=== PATIENT | male | born 1940 | race Hispanic/Latino ===

== ENCOUNTER 2017-07-07 08:33 | Day surgery (SDC) | payer MEDICARE ==
[2017-07-07] MEDS ORDERED: NACL 0.9% 500 ML 500 ML IV SCH (09:00)
[2017-07-07 09:17] LABS: Basophils # (Auto) 0.1 K/mm3 (0.0-0.1); Basophils % (Auto) 0.9 % (0.0-1.8); Eosinophils # (Auto) 0.3 K/mm3 (0.0-0.4); Eosinophils % (Auto) 2.8 % (0.0-4.3); Hematocrit 39.6 % (35.5-45.6); Hemoglobin 12.4 gm/dl (11.8-15.2); Lymphocytes # (Auto) 1.3 K/mm3 (1.2-5.4); Lymphocytes % (Auto) 11.4 % (13.4-35.0); Mean Corpuscular HGB Conc 31 % (32-34); Mean Corpuscular Hemoglobin 28 pg (28-32); Mean Corpuscular Volume 91 fl (84-94); Monocytes # (Auto) 1.4 K/mm3 (0.0-0.8); Monocytes % (Auto) 11.8 % (0.0-7.3); Platelet Count 231 K/mm3 (140-440); Red Blood Count 4.38 M/mm3 (3.65-5.03); Red Cell Distribution Width 16.6 % (13.2-15.2)
[2017-07-07 09:27] LABS: INR 1.32 (0.87-1.13)
[2017-07-07 09:28] LABS: Partial Thromboplastin Time 34.4 Sec. (24.2-36.6)
[2017-07-07] MEDS ORDERED: NACL 0.45% 1000 ML 0 ML IV ONE (09:34)
[2017-07-07] MEDS ORDERED: NACL 0.9% 1000 ML 1,000 ML IV SCH (09:35)
[2017-07-07] MEDS ORDERED: NACL 0.9% 1000 ML 1,000 ML ONE (09:35)
[2017-07-07] MEDS ORDERED: HEPARIN/NS 5000 UNIT/500ML(CATH LAB) 1,000 ML IR ONE (09:36)
[2017-07-07] MEDS ORDERED: XYLOCAINE 2% INFILTRATI ONE (09:36)
[2017-07-07 10:02] LABS: Calcium 9.4 mg/dL (8.4-10.2)
[2017-07-07] MEDS ORDERED: BENADRYL ONE (10:09)
[2017-07-07] MEDS ORDERED: VERSED ONE (10:11)
--- NOTE | 2017-07-07 10:26 | Short Stay Summary ---
Short Stay Documentation Date of service: 07/07/17 Narrative H&P: History of PAD with chronic non-healing ulcer in the right anterior lower leg. Initially began with an injury. Currently goes to a wound care center for treatment - History Principal diagnosis: Right LE wound and PAD Past Medical History: acute MT, atrial fib, cancer, diabetes, hypertension, other (Kidney stones, BPH) Past Surgical History: appendectomy, valve replacement, CABG, Other (Right hip and knee surgery) Social history: - Allergies and Medications Current Medications: Allergies No Known Allergies Allergy (Verified 07/07/17 08:51) Home Medications Medication Instructions Recorded Confirmed Last Taken Type Adult Low Dose Aspirin EC 81 mg PO DAILY 07/07/17 07/07/17 07/05/17 History 81mg Atorvastatin Calcium 40 mg PO DAILY 07/07/17 07/07/17 07/06/17 History 40mg Carvedilol [Coreg] 1 tab PO DAILY 07/07/17 07/07/17 07/06/17 History 1 Collagenase [Santyl] 1 inch TRANSDERMA DAILY 07/07/17 07/07/17 07/06/17 History 1 Glimepiride [Amaryl] 2 mg PO DAILY 07/07/17 07/07/17 07/06/17 History 2mg Metformin HCl 500 mg PO DAILY 07/07/17 07/07/17 07/06/17 History 500mg Rivaroxaban [Xarelto] 20 mg PO DAILY 07/07/17 07/07/17 07/05/17 History 20mg Spironolactone-Hctz 25-25 Tab 1 tab PO DAILY 07/07/17 07/07/17 07/06/17 History 1 Active Medications Sodium Chloride (Nacl 0.9% 500 Ml) 500 mls @ 50 mls/hr IV DIRECT SCARLET - Physical exam General appearance: no acute distress HEENT: Atraumatic, PERRLA Heart: Regular rate Gastrointestinal: normal Male Genitourinary: deferred Rectal Exam: deferred Extremities: Full ROM, abnormal (IVORY CARVER bilateral DP and PT. Doppler is monophasic. 2+ femorals. Right anterior distal large leg wound. 1+ edema and hyperpigmentation) Neurological: Normal gait, Normal speech, Reflexes 2+ - Brief post op/procedure progress note Date of procedure: 07/07/17 Pre-op diagnosis: Right leg wound. PAD Procedure: Right SFA angioplsty. Right anterior tibial revascularization and angioplasty Anesthesia: regional Findings: Mutliple areas of stenosis in right SFA. Good result following balloon angioplasty with drug coated balloon Occlusion of the right anterior tibial artery. Inline flow to the DP following balloon angioplsty Surgeon: GONSALO ZEE Estimated blood loss: minimal Pathology: none Condition: stable - Disposition Condition at discharge: Good Disposition: DC-01 TO HOME OR SELFCARE Short Stay Discharge Plan Activity: advance as tolerated Weight Bearing Status: Weight Bear as Tolerated Wound: other (change per wound care instructions. Follow up with wound care.) Follow up with: Angie CAMPBELL MD [Primary Care Provider] - 7 Days
[2017-07-07] MEDS: SUBLIMAZE ONE ×5 (10:32→12:37)
[2017-07-07] MEDS: HEPARIN 10,000 UNITS/10 ML ONE ×3 (10:59→12:09)
[2017-07-07] MEDS: VERSED ONE ×2 (11:26→12:13)
[2017-07-07] MEDS ORDERED: HEPARIN/NS 5000 UNIT/500ML(CATH LAB) 500 ML IR ONE (11:46)
[2017-07-07] MEDS ORDERED: NITROGLYCERIN SYRINGE 3 ML ONE (12:05)
[2017-07-07] MEDS ORDERED: NACL 0.9% 500 ML IR ONE (13:10)
[2017-07-07] MEDS ORDERED: THERMAZENE 50 GRAM TP ONE (13:15)
[2017-07-07 16:36] VITALS: BP 131/59
--- NOTE | 2017-07-11 08:44 | Operative Report ---
Operative Report Operative Report: Procedure Right lower extremity SFA angioplsty. Right lower extremity right anterior tibial artery angioplasty. Indication: Right lower extremity ulcer. Peripheral arterial disease Anesthesia: Moderate conscious sedation. Contrast: Visipaque 110 cc Heparin: 7000 units IV Nitroglycerin: 400 mcg Techinque: Following informed and written consent, the patient was placed supine on the angiographic table and the right groin was prepped and draped in the usual sterile fashion and a micropuncture access set was utilized to access the right common femoral artery using ultrasound guidance and a 6 Fr vascular sheath was inserted and contrast injected to evalute the right lower extremity to the foot. A guide wire was advanced into the popliteal artery and then the proximal and mid SFA pre-dlated wtih a 5 x 120 mm balloon. Subsequently two 6 x 150 mm IN PACT drug coated balloons were utlized with prolonged inflation to dilate the areas of stenosis. A trailblazer microcatheter and v-18 guidewire was advanced into the occluded anterior tibial artery and then the anterior tibial artery dilated using a 2 x 220 mm balloon and then a 3 x 220 mm balloon. Following completion a follow up right lower extremity angiogram was performed. The right groin sheath was removed and manual compression applied until adequate hemostasis was achieved. The patient tolerated the procedure well and was discharged following adequate recovery time. Findings: There were multiple areas of greater than 50% stenosis involving the proximal and mid SFA with extensive atherosclerotic calcific plaque throughout. Following balloon angioplasty with DCB good angiographic result was present with less than 20% residual stenosis.The peroneal artery was the main run-off vessel (with narrowing proximally) which reconstituted a distal PT. Occlusion of the proximal PT The anterior tibial artery occludes proximally with areas of reconstitution and distally reconstitutes to the DP. Following balloon angiooplasty there is in-line flow in the AT and DP. Impression: 1. Significant stenosis of the SFA with good result following TECHNOLOGY RISK INTERN with DCB 2. Occlusion of the AT with establishment of in-line flow following TECHNOLOGY RISK INTERN 3. Peroneal patent providing reconstitution to the distal PT 4. Patient will follow up in clinic in 2 weeks
== END 2017-07-07 17:02 | disposition home or self-care (01) ==
LOC: CATHLABREC 08:33
PROVIDERS: ATTEND Radiology Vascular & Interventional Radiology
DX: I70.238 Atherosclerosis of native arteries of right leg with ulceration of other part of lower leg (principal); I25.2 Old myocardial infarction; I48.91 Unspecified atrial fibrillation; E11.51 Type 2 diabetes mellitus with diabetic peripheral angiopathy without gangrene; N40.0 Benign prostatic hyperplasia without lower urinary tract symptoms; Z98.890 Other specified postprocedural states; Z95.2 Presence of prosthetic heart valve; Z79.01 Long term (current) use of anticoagulants; Z79.84 Long term (current) use of oral hypoglycemic drugs; Z95.1 Presence of aortocoronary bypass graft
CPT/HCPCS: 36415; 37224; 37228; 80048; 82962; 85025; 85347; 85610; 85730; 96360; 96361; 99156; 99157; C1725; C1751; C1769; C1894; C2623; J1200; J1644; J2250; J3010; J7030; Q9967